=== PATIENT | female | born 1955 | race Caucasian/White ===

== ENCOUNTER 2024-06-26 22:14 | Observation (INO) | payer MEDICARE ==
--- NOTE | 2024-06-26 23:23 | ED ---
General Adult HPI - General Chief complaint: Recheck/Abnormal Lab/Rx Stated complaint: Transfer Tachycardia Time Seen by Provider: 06/26/24 23:05 Source: patient, EMS Mode of arrival: EMS Limitations: no limitations - History of Present Illness Initial comments: Dictation was produced using [employer] dictation software. please excuse any grammatical, word or spelling errors. Chief Complaint: 69-year-old female presents to the emergency department via transfer for arrhythmia and elevated troponin History of Present Illness: Patient 69-year-old female transferred from [facility]. Patient transferred for complaint of tachycardia, possible arrhythmia and elevated troponin. Patient had elevated high-sensitivity troponin at approximately 8:00 PM. Patient initially presented to outside emergency department for mechanical trip and fall with head contusion. Patient did not present with any chest pain shortness of breath dizziness weakness. Patient had extensive workup including laboratory evaluation, EKG CT angiography. CT imaging was negative. Patient was found to have tachycardia to the 180s. She was placed on Cardizem. Delta high-sensitivity troponin was 22. Patient denies any symptoms at this time. The ROS documented in this emergency department record has been reviewed and confirmed by me. Those systems with pertinent positive or negative responses have been documented in the HPI. All other systems are other negative and/or noncontributory. - Related Data Allergies Allergy/AdvReac Type Severity Reaction Status Date / Time No Known Allergies Allergy Verified 06/26/24 22:20 Review of Systems ROS Statement: Those systems with pertinent positive or pertinent negative responses have been documented in the HPI. ROS Other: All systems not noted in ROS Statement are negative. Past Medical History Past Medical History: No Reported History Past Surgical History: No Surgical Hx Reported Smoking Status: Never smoker Past Alcohol Use History: None Reported Past Drug Use History: None Reported General Exam - General Exam Comments Initial Comments: PHYSICAL EXAM: General Impression: Alert and oriented x3, not in acute distress HEENT: Normocephalic atraumatic, extra-ocular movements intact, pupils equal and reactive to light bilaterally, mucous membranes moist. Cardiovascular: Heart regular rate and rhythm Chest: Able to complete full sentences, no retractions, no tachypnea Abdomen: abdomen soft, non-tender, non-distended, no organomegaly Musculoskeletal: Pulses present and equal in all extremities, no peripheral edema Motor: no focal deficits noted Neurological: CN II-XII grossly intact, no focal motor or sensory deficits noted Skin: Intact with no visualized rashes Psych: Normal affect and mood Limitations: no limitations Course Vital Signs 06/26/24 06/26/24 22:17 23:37 Temperature 98.4 F Pulse Rate 120 H 105 H Respiratory 18 18 Rate Blood Pressure 151/79 136/82 O2 Sat by Pulse 97 100 Oximetry EKG Findings - EKG Comments: EKG Findings:: My EKG interpretation: Ventricular rate 117, sinus tachycardia,. 132, QRS 70, QTc 373. No VT prolongation, no QTC prolongation, no ST or T-wave changes noted. Overall, this EKG is unremarkable Medical Decision Making - Medical Decision Making Was pt. sent in by a medical professional or institution (, PA, CHILD WELFARE ASSISTANT, urgent care, hospital, or intermediate...) When possible be specific @ -See above Did you speak to anyone other than the patient for history (EMS, parent, family, police, friend...)? What history was obtained from this source @ -See above Did you review nursing and triage notes (agree or disagree)? Why? @ -I reviewed and agree with nursing and triage notes Were old charts reviewed (outside hosp., previous admission, EMS record, old EKG, old radiological studies, urgent care reports/EKG's, intermediate records)? Report findings @ -No old charts were reviewed Differential Diagnosis (chest pain, altered mental status, abdominal pain women, abdominal pain men, vaginal bleeding, musculoskeletal, weakness, fever, dyspnea, syncope, headache, dizziness, GI bleed, back pain, seizure, CVA, palpatations, mental health)? @ - Differential Palpitations: Ventricular arrhythmias, atrial arrhythmias, myocardial infarction, anemia, thyrotoxicosis, electrolyte imbalance, hypokalemia, pulmonary embolism, pulmonary disease, drugs, alcohol, anxiety, stress.... This is not meant to be an all-inclusive list. EKG interpreted by me (3pts min.). @ -See above X-rays interpreted by me (1pt min.). @ -None done CT interpreted by me (1pt min.). @ -None done U/S interpreted by me (1pt. min.). @ -None done What testing was considered but not performed or refused? (CT, X-rays, U/S, labs)? Why? @ -None What meds were considered but not given or refused? Why? @ -None Was smoking cessation discussed for >3mins.? @ -No Were there social determinants of health that impacted care today? How? (Homelessness, low income, unemployed, alcoholism, drug addiction, transportation, low edu. Level, literacy, decrease access to med. care, senior care, rehab)? @ -No Was there de-escalation of care discussed even if they declined (Discuss DNR or withdrawal of care, Hospice)? DNR status @ -No What co-morbidities impacted this encounter? (DM, HTN, Smoking, COPD, CAD, Cancer, CVA, ARF, Chemo, Hep., AIDS, mental health diagnosis, sleep apnea, morbid obesity)? @ -None Was patient admitted / discharged? Hospital course, mention meds given and route, prescriptions, significant lab abnormalities, going to OR and other pertinent info. @ -61-year-old female presents to the emergency department for higher level of care. Was transferred from freestanding ED for cardiology consultation and cardiac management. Patient well-appearing at the bedside. Vital signs stable. Suspect patient had episode of SVT versus A-fib with RVR. Patient not on any cardioactive medications at this time. She is maintaining sinus tachycardia with a rate of around 110. Case discussed with hospitalist for admission Did you discuss the management of the patient with other professionals (professionals i.e. , PA, CHILD WELFARE ASSISTANT, lab, RT, psych nurse, psychiatric social worker supervisor, sales support coordinator, teacher, forward air controller/air officer, telephonic case manager)? Give summary @ -See above Was critical care preformed (if so, how long)? @ -No Undiagnosed new problem with uncertain prognosis? @ -No Drug Therapy requiring intensive monitoring for toxicity (Heparin, Nitro, Insulin, Cardizem)? @ -No Were any procedures done? @ -No Diagnosis/symptom? Acute, or Chronic, or Acute on Chronic? Uncomplicated (without systemic symptoms) or Complicated (systemic symptoms)? @ -Arrhythmia Side effects of treatment? @ -No Exacerbation, Progression, or Severe Exacerbation? @ -No Poses a threat to life or bodily function? How? (Chest pain, [place], [place], pneumonia, PE, COPD, DKA, ARF, appy, cholecystitis, CVA, Diverticulitis, Homicidal, Suicidal, threat to staff... and all critical care pts) @ -yes Disposition Clinical Impression: Arrhythmia Disposition: ADMITTED IP TO THIS HOSP Condition: Fair Referrals: None,Stated [Primary Care Provider] - 1-2 days Decision Time: 00:18
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
[2024-06-27 09:52] LABS: Basophils % (A) 0 %; Eosinophils % (A) 0 %; HCT 37.4 % (34.0-46.0); HGB 12.5 gm/dL (11.4-16.0); Lymphocytes # (A) 1.5 k/uL (1.0-4.8); Lymphocytes % (A) 18 %; MCH 30.5 pg (25.0-35.0); MCHC 33.6 g/dL (31.0-37.0); MCV 90.9 fL (80.0-100.0); Mean Platelet Volume 7.8; Monocytes # (A) 0.4 k/uL (0-1.0); Monocytes % (A) 5 %; Neutrophils # (A) 6.2 k/uL (1.3-7.7); Neutrophils % (A) 75 %; Platelet Count 204 k/uL (150-450); RBC 4.11 m/uL (3.80-5.40); RDW 12.8 % (11.5-15.5); WBC 8.2 k/uL (3.8-10.6)
[2024-06-27 10:38] LABS: ALT 26 U/L (4-34); AST 25 U/L (14-36); African American GFR (CKD) >90 (>60 ml/min/1.73 sqM); Albumin 3.8 g/dL (3.5-5.0); Alkaline Phosphatase 64 U/L (38-126); Anion Gap 6 mmol/L; Bilirubin, Delta 0.1 mg/dL (0.0-0.2); Bilirubin,Unconjugated 0.5 mg/dL (0.0-1.1); Blood Urea Nitrogen 9 mg/dL (7-17); Calcium 8.5 mg/dL (8.4-10.2); Carbon Dioxide 21 mmol/L (22-30); Chloride 105 mmol/L (98-107); Glucose 118 mg/dL (74-99); Magnesium 2.1 mg/dL (1.6-2.3); Non-African American GFR(CKD) >90 (>60 ml/min/1.73 sqM); Potassium 3.5 mmol/L (3.5-5.1); Sodium 132 mmol/L (137-145); Total Bilirubin 0.6 mg/dL (0.2-1.3); Total Protein 6.4 g/dL (6.3-8.2)
[2024-06-27] MEDS: PANTOPRAZOLE 40 MG TABLET PO SCH (10:44)
[2024-06-27] MEDS: ASPIRIN 81 MG PO SCH (10:44)
[2024-06-27] MEDS: ENOXAPARIN 40 MG/0.4 ML SYRINGE SQ SCH (10:44)
[2024-06-27] MEDS: METOPROLOL SUCCINATE (ER) 25 MG TAB.ER.24H PO SCH (10:44)
--- NOTE | 2024-06-27 13:45 | P.CRDCN ---
History of Present Illness Consult date: 06/27/24 History of present illness: This is a 69-year-old female patient with no previous past medical history. 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 Patient initially presented to [facility] in [facility] after a trip and fall hitting her head and causing a laceration to the right orbit. There she was found to have an elevated D-dimer and CTA of the chest was negative for PE. Patient also had elevated troponin and concern for DC and patient was transferred to [facility] for evaluation. Also during the time patient was on the CT table, she went into a tachyarrhythmia and was thought to be SVT Versus atrial flutter. Patient denies having chest pain, chest pressure, no palpitations, no lightheadedness or dizziness. Her fall was a mechanical trip and fall. Blood pressure 137/75, heart rate 100, pulse ox 95% on room air. -EKG: Sinus tachycardia -Laboratory studies: CBC within normal limits. Sodium 132, potassium 3.5, creatinine 0.42. Troponin 0.076, 0.065, 0.049. TSH 0.633. -Home cardiac medications: None Review Of Systems: At the time of my exam: CONSTITUTIONAL: Denies fever or chills. HEENT: Denies blurred vision, vision changes, or eye pain. Denies hemoptysis CARDIOVASCULAR: Denies chest pain. Denies orthopnea. Denies PND. Denies palpitations RESPIRATORY: Denies shortness of breath. GASTROINTESTINAL: Denies abdominal pain. Denies nausea or vomiting. HEMATOLOGIC: Denies bleeding disorders. GENITOURINARY: Denies any blood in urine. SKIN: Denies puritis. Denies rash. Physical examination: Gen: This is a 69-year-old female in no acute distress VS: reviewed HEENT: Head has edema and laceration to the right orbit, normocephalic. Pupils equal, round. Sclerae is anicteric. NECK: Supple. No JVD. LUNGS: Clear to auscultation. No wheezes or rhonchi. No intercostal retractions. HEART: Regular rate and rhythm. No murmur. ABDOMEN: Soft No tenderness. EXTREMITIES: No pedal edema. No calf tenderness. NEUROLOGICAL: Patient is awake, alert and oriented x3. Assessment: SVT, long RP tachycardia Trip and fall, concussion Plan: Start patient on metoprolol succinate 12.5 mg daily Obtain 2-D echocardiogram and Doppler study to assess cardiac structure and function Event monitor for 14 days If echocardiogram is unremarkable, patient is cleared for discharge with the event monitor and follow-up with Dr. Valadez in 3 weeks. Thank you kindly for this consultation. Nurse practitioner note has been reviewed, I agree with documented findings and plan of care. Patient was seen and examined. Past Medical History Past Medical History: No Reported History Past Surgical History: No Surgical Hx Reported Smoking Status: Never smoker Past Alcohol Use History: None Reported Past Drug Use History: None Reported - Past Family History Mother Family Medical History: Diabetes Mellitus Medications and Allergies Home Medications Medication Instructions Recorded Confirmed Type No Known Home Medications 06/27/24 06/27/24 History Allergies Allergy/AdvReac Type Severity Reaction Status Date / Time No Known Allergies Allergy Verified 06/27/24 07:31 Physical Exam Vitals: Vital Signs Temp Pulse Resp BP Pulse Ox 06/27/24 05:00 94 14 127/88 97 06/27/24 04:00 97 18 132/82 98 06/27/24 02:30 102 H 18 135/95 98 06/27/24 01:12 98 18 136/81 98 06/26/24 23:37 105 H 18 136/82 100 06/26/24 22:17 98.4 F 120 H 18 151/79 97 Intake and Output 06/26/24 06/27/24 06/27/24 22:59 06:59 14:59 Other: Weight 72.575 kg Results 06/27/24 09:22 06/27/24 09:22 Cardiac Enzymes 06/27/24 06/27/24 06/27/24 Range/Units 00:15 02:51 07:00 Troponin I 0.076 H* 0.065 H* 0.049 H* (0.000-0.034) ng/mL Current Medications Generic Name Dose Route Start Last Admin Trade Name Freq PRN Reason Stop Dose Admin Aspirin 81 mg 06/27/24 09:00 Aspirin 81 Mg PO DAILY [facility] Atorvastatin Calcium 80 mg 06/27/24 21:00 Atorvastatin 80 Mg Tab PO HS [facility] Enoxaparin Sodium 40 mg 06/27/24 09:00 Enoxaparin 40 Mg/0.4 Ml Syringe SQ DAILY SARB[facility]IT Pantoprazole Sodium 40 mg 06/27/24 07:30 Pantoprazole 40 Mg Tablet PO AC-BRKFST [facility] Intake and Output 06/26/24 06/27/24 06/27/24 22:59 06:59 14:59 Other: Weight 72.575 kg
[2024-06-27] MEDS: DILTIAZEM 125 MG in SODIUM CHLORIDE 0.9% 100 ML IV SCH (18:45)
[2024-06-27] MEDS: DILTIAZEM DRIP BOLUS FROM BAG 1 MG SOLN IV ONE (18:45)
[2024-06-27] MEDS: ATORVASTATIN 80 MG TAB PO SCH (20:05)
[2024-06-28 04:01] VITALS: TEMP 98.1
[2024-06-28 06:51] LABS: Basophils % (A) 1 %; Eosinophils # (A) 0.1 k/uL (0-0.7); Eosinophils % (A) 1 %; HCT 37.6 % (34.0-46.0); HGB 12.5 gm/dL (11.4-16.0); Lymphocytes % (A) 35 %; MCH 29.7 pg (25.0-35.0); MCHC 33.2 g/dL (31.0-37.0); MCV 89.6 fL (80.0-100.0); Mean Platelet Volume 8.1; Monocytes # (A) 0.3 k/uL (0-1.0); Monocytes % (A) 5 %; Neutrophils # (A) 3.2 k/uL (1.3-7.7); Neutrophils % (A) 57 %; Platelet Count 182 k/uL (150-450); RBC 4.19 m/uL (3.80-5.40); WBC 5.7 k/uL (3.8-10.6)
[2024-06-28 07:05] LABS: African American GFR (CKD) >90 (>60 ml/min/1.73 sqM); Anion Gap 5 mmol/L; Blood Urea Nitrogen 7 mg/dL (7-17); Calcium 8.5 mg/dL (8.4-10.2); Carbon Dioxide 25 mmol/L (22-30); Chloride 104 mmol/L (98-107); Glucose 97 mg/dL (74-99); Magnesium 2.1 mg/dL (1.6-2.3); Non-African American GFR(CKD) >90 (>60 ml/min/1.73 sqM); Potassium 3.6 mmol/L (3.5-5.1); Sodium 134 mmol/L (137-145)
[2024-06-28 08:32] VITALS: BP 137/90; PULSE 107; RESP 16
--- NOTE | 2024-06-28 09:42 | CA ---
Transthoracic Echo Report Name: Laura Doan Age: 69 Gender: F : 1955 Exam Date: 06/27/2024 10:16 Exam Location: [facility] Ht (in): 66 Wt (lb): 160 Ordering Physician: Arsen Bhakta MD Attending/Referring Phys: Leaded Glass Installer Roz Romano RDCS Procedure CPT: Indications: tachycardia Cardiac Hx: Technical Quality: Good Contrast 1: Total Dose (mL): Contrast 2: Total Dose (mL): MEASUREMENTS (Male / Female) Normal Values 2D ECHO LV Diastolic Diameter PLAX 4.2 cm 4.2 - 5.9 / 3.9 - 5.3 cm LV Systolic Diameter PLAX 2.6 cm IVS Diastolic Thickness 0.9 cm 0.6 - 1.0 / 0.6 - 0.9 cm LVPW Diastolic Thickness 1.0 cm 0.6 - 1.0 / 0.6 - 0.9 cm LV Relative Wall Thickness 0.4 LVOT Diameter 1.8 cm LV Diastolic Volume MOD BP 61.7 cm??? 67 - 155 / 56 - 104 cm??? LV Systolic Volume MOD BP 17.8 cm??? 22 - 58 / 19 - 49 cm??? LV Ejection Fraction MOD BP 71.1 % >= 55 % LV Cardiac Index MOD BP 2464.4 cm???/min???m??? LV Diastolic Volume MOD 4C 56.6 cm??? LV Systolic Volume MOD 4C 18.3 cm??? LV Ejection Fraction MOD 4C 67.7 % LV Cardiac Index MOD 4C 2150.8 cm???/min???m??? LV Diastolic Length 4C 6.3 cm LV Systolic Length 4C 5.1 cm LV Diastolic Volume MOD 2C 59.5 cm??? LV Systolic Volume MOD 2C 16.0 cm??? LV Ejection Fraction MOD 2C 73.0 % LV Cardiac Index MOD 2C 2442.0 cm???/min???m??? LV Diastolic Length 2C 7.3 cm LV Systolic Length 2C 5.5 cm LA Volume 37.0 cm??? 18 - 58 / 22 - 52 cm??? LA Volume Index 20.0 cm???/m??? 16 - 28 cm???/m??? Ascending Aorta Diameter 3.3 cm DOPPLER AV Peak Velocity 159.5 cm/s AV Peak Gradient 10.2 mmHg AV Mean Velocity 124.5 cm/s AV Mean Gradient 6.5 mmHg AV Velocity Time Integral 29.9 cm LVOT Peak Velocity 119.8 cm/s LVOT Peak Gradient 5.7 mmHg LVOT Velocity Time Integral 21.0 cm LVOT Stroke Volume 55.9 cm??? LVOT Stroke Volume Index 30.7 ml/m??? LVOT Cardiac Index 3142.1 cm???/min???m??? AV Area Cont Eq vti 1.9 cm??? AV Area Cont Eq pk 2.0 cm??? MV Area PHT 6.5 cm??? Mitral E Point Velocity 60.9 cm/s Mitral A Point Velocity 93.9 cm/s Mitral E to A Ratio 0.6 MV Deceleration Time 116.2 ms PV Peak Velocity 89.7 cm/s PV Peak Gradient 3.2 mmHg FINDINGS Left Ventricle Left ventricular ejection fraction is estimated at 55-60 %. Hyperdynamic left ventricular systolic function. Left ventricular cavity size normal. Left ventricular wall thickness normal. No obvious regional wall motion abnormalities. Right Ventricle Normal right ventricular size and function. Unable to estimate the right ventricular systolic pressure. Right Atrium Normal right atrial size. Left Atrium Normal left atrial size. Mitral Valve Structurally normal mitral valve. No evidence for mitral valve prolapse. No mitral stenosis. Cnex-gk-[id number] mitral regurgitation. Aortic Valve Trileaflet aortic valve. No aortic valve stenosis or regurgitation. Tricuspid Valve Structurally normal tricuspid valve. No tricuspid stenosis. Trace tricuspid regurgitation. Pulmonic Valve Pulmonic valve not well visualized. No pulmonic stenosis. No pulmonic regurgitation. Pericardium No pericardial effusion. Aorta Normal size aortic root and proximal ascending aorta. CONCLUSIONS LVEF is 55 to 60% No obvious regional wall motion abnormality appreciated No significant valvular dysfunction appreciated Normal RV size and systolic function. Previewed by: Dr Chencho Hawkins (Electronically Signed) Final Date: 28 June 2024 09:41
[2024-06-28 10:35] LABS: Chol/HDL Ratio 3.57 Ratio; LDL Cholesterol,Calculated 163.9 mg/dL (0.0-131.0); VLDL Calculation 12.54 mg/dL (5.00-40.00)
--- NOTE | 2024-06-28 11:12 | P.DS ---
Providers Date of admission: 06/27/24 00:17 Attending physician: Bob Florian MD Consults: 06/27/24 00:15 Consult Physician Urgent Consulting Provider: Hasmukh Valadez Consult Reason/Comments: arrhythmia Do you want consulting provider notified?: Yes Primary care physician: Stated None Hospital Course: During this hospital course the patient was admitted from outside hospital for tachycardia. EKG had revealed SVT with no prior history of SVT. The patient had borderline cardiac enzymes. Echocardiogram had revealed LVEF of 55 to 60% the patient was then discharged home with a 14-day heart monitor on June 28. Continue metoprolol succinate 12.5 mg daily Assessment: SVT-Continue metoprolol succinate 12.5 mg daily Plan - Discharge Summary Discharge Rx Participant: No New Discharge Prescriptions: New Metoprolol Succinate (ER) [Toprol XL] 12.5 mg PO DAILY #30 tab Discharge Medication List Metoprolol Succinate (ER) [Toprol XL] 12.5 mg PO DAILY #30 tab 06/28/24 [Rx] Follow up Appointment(s)/Referral(s): Hasmukh Valadez DO [STAFF PHYSICIAN] - 3 Weeks None,Stated [Primary Care Provider] - 1-2 days Discharge Disposition: HOME SELF-CARE
--- NOTE | 2024-06-28 12:30 | P.PN ---
Subjective Progress Note Date: 06/28/24 History of present illness: This is a 69-year-old female patient with no previous past medical history. 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 Patient initially presented to [facility] in [facility] after a trip and fall hitting her head and causing a laceration to the right orbit. There she was found to have an elevated D-dimer and CTA of the chest was negative for PE. Patient also had elevated troponin and concern for MS and patient was transferred to [facility] for evaluation. Also during the time patient was on the CT table, she went into a tachyarrhythmia and was thought to be SVT Versus atrial flutter. Patient denies having chest pain, chest pressure, no palpitations, no lightheadedness or dizziness. Her fall was a mechanical trip and fall. Blood pressure 137/75, heart rate 100, pulse ox 95% on room air. -EKG: Sinus tachycardia -Laboratory studies: CBC within normal limits. Sodium 132, potassium 3.5, creatinine 0.42. Troponin 0.076, 0.065, 0.049. TSH 0.633. -Home cardiac medications: None 06/28/24 Patient is seen and examined. She denies having any palpitations, lighth eadedness or dizziness. She has been ambulating without difficulty. No chest pain. No shortness of breath. Blood pressure 137/90, heart rate 107, pulse ox 98% on room air. Repeat CBC and BMP unremarkable. Telemetry is sinus rhythm. Event monitor was placed yesterday in anticipation of discharge yesterday. Echocardiogram reveals EF 55 to 60%, no obvious wall motion abnormality, no significant valvular dysfunction. Physical examination: Gen: This is a 69-year-old female in no acute distress VS: reviewed HEENT: Head has edema and laceration to the right orbit, normocephalic. Pupils equal, round. Sclerae is anicteric. NECK: Supple. No JVD. LUNGS: Clear to auscultation. No wheezes or rhonchi. No intercostal retractions. HEART: Regular rate and rhythm. No murmur. ABDOMEN: Soft No tenderness. EXTREMITIES: No pedal edema. No calf tenderness. NEUROLOGICAL: Patient is awake, alert and oriented x3. Assessment: SVT, long RP tachycardia Trip and fall, concussion Plan: Continue patient on metoprolol succinate 12.5 mg daily Event monitor for 14 days Patient is cleared for discharge with the event monitor and follow-up with Dr. Valadez in 3 weeks. Nurse practitioner note has been reviewed, I agree with documented findings and plan of care. Patient was seen and examined. Objective - Vital Signs Vital signs: Vital Signs Temp 98.1 F 06/28/24 03:58 Pulse 107 H 06/28/24 08:00 Resp 16 06/28/24 08:00 BP 137/90 06/28/24 08:00 Pulse Ox 98 06/28/24 08:00 FiO2 Intake & Output 06/27/24 06/28/24 06/28/24 18:59 06:59 18:59 Intake Total 200 Balance 200 Weight 60.4 kg Intake: Oral 200 Other: Voiding Method Toilet Toilet # Voids 2 - Labs CBC & Chem 7: 06/28/24 06:21 06/28/24 06:21 Labs: Abnormal Lab Results - Last 24 Hours (Table) 06/28/24 Range/Units 06:21 Sodium 134 L (137-145) mmol/L Cholesterol 245.00 H (0.00-200.00) mg/dL LDL Cholesterol, Calc 163.9 H (0.0-131.0) mg/dL HDL Cholesterol 68.60 H (40.00-60.00) mg/dL
--- NOTE | 2024-07-12 07:55 | P.CEMON ---
14 Day Event monitor note: Patient wore an event monitor for 14 days from 06/27/2024 through 07/10/2024. Findings: Patient's baseline heart rate was normal sinus rhythm. There were no signficant atrial fibrillation, atrial flutter, or ventricular tachycardia episodes. There were no significant pauses greater than 2 seconds. Minimum heart rate 59 bpm Maximum heart rate 125 bpm Average heart rate 80 bpm There were no PVCs or PACs noted 1 patient activated event corresponding with normal sinus rhythm Conclusions: 14 day event monitor showing normal sinus rhythm with no significant PACs or PVCs. One patient activated event corresponded with normal sinus rhythm
--- NOTE | 2024-07-13 09:08 | EM ---
14 Day Event monitor note: Patient wore an event monitor for 14 days from 06/27/2024 through 07/10/2024. Findings: Patient's baseline heart rate was normal sinus rhythm. There were no significant atrial fibrillation, atrial flutter, or ventricular tachycardia episodes. There were no significant pauses greater than 2 seconds. Minimum heart rate 59 bpm Maximum heart rate 125 bpm Average heart rate 80 bpm There were no PVCs or PACs noted 1 patient activated event corresponding with normal sinus rhythm Conclusions: 14 day event monitor showing normal sinus rhythm with no significant PACs or PVCs. One patient activated event corresponded with normal sinus rhythm. MTDD
== END 2024-06-28 12:06 | disposition home or self-care (01) ==
LOC: EC 22:14 → 3SCARD 06-27 00:17 → 2SICU 06-27 06:02 → 3SCARD 06-27 06:03
PROVIDERS: ADMIT Internal Medicine; ATTEND Internal Medicine
DX: I49.9 Cardiac arrhythmia, unspecified (principal); I47.10 Supraventricular tachycardia, unspecified; R79.9 Abnormal finding of blood chemistry, unspecified; S01.81XA Laceration without foreign body of other part of head, initial encounter; W01.0XXA Fall on same level from slipping, tripping and stumbling without subsequent striking against object, initial encounter; Z79.82 Long term (current) use of aspirin; Z79.899 Other long term (current) drug therapy
CPT/HCPCS: 96372 ×2; 96374; 99285; 93005; 93306; 93270; 80061; 80048 ×2; 80076; 84443; 83735 ×2; 84484; 85025 ×2; G0378 ×3; J1650 ×2